=== PATIENT | female | born 1955 | race Caucasian/White ===

== ENCOUNTER 2017-05-21 10:25 | Emergency (ER) | payer OTHER ==
[~2017-05-21] VITALS: Ht 167.6 cm; Wt 61.2 kg
[2017-05-21 10:29] VITALS: BP 131/71
[2017-05-21] MEDS ORDERED: LIDOCAINE HCL/PF 1% 30 ML SDV ONE (10:39)
[2017-05-21] MEDS ORDERED: LIDOCAINE HCL/PF 1% 30 ML VIAL TP ONE (11:00)
== END 2017-05-21 12:41 | disposition home or self-care (01) ==
LOC: ER 10:36
DX: S99.821A Other specified injuries of right foot, initial encounter (principal); B35.1 Tinea unguium; W22.8XXA Striking against or struck by other objects, initial encounter; Y93.89 Activity, other specified; Y92.89 Other specified places as the place of occurrence of the external cause; Y99.8 Other external cause status
CPT/HCPCS: 11730; A4606; A6402; J3490; Z7610

== ENCOUNTER 2019-07-20 11:27 | Emergency (ER) | payer OTHER ==
[~2019-07-20] VITALS: Ht 175.3 cm; Wt 65.8 kg
--- NOTE | 2019-07-20 11:46 | NUR ---
CHEST PAIN SINCE YESTERDAY. CARDIO APPOINTMENT NOT UP TILL 07/31/19. REPORTS PAIN LEVEL 6/10. DENIES SOB, DIZZINESS, WEAKNESS, N/V. 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 NO ACUTE DISTRESS NOTED. ON MONITOR AND READY FOR EVAL.
--- NOTE | 2019-07-20 11:59 | NUR ---
IV LINE ESTABLISHED, BLOOD DRAWN AND SENT TO STAT LAB. PT KAREEN WELL.
--- NOTE | 2019-07-20 12:01 | NUR ---
BRITTNEY DONIS AT BEDSIDE FOR EKG
[2019-07-20 12:06] LABS: BASOPHILS # (AUTO) 0.1 /CMM (0.0-0.2); BASOPHILS % (AUTO) 1.8 % (0.0-2.0); EOSINOPHILS % (AUTO) 3.2 % (0.0-6.0); HEMATOCRIT 46 % (33-45); HEMOGLOBIN 15.2 g/dL (11.5-14.8); LYMPHOCYTES # (AUTO) 2.1 /CMM (0.8-4.8); MEAN CORPUSCULAR HGB CONC 33 g/dl (31.0-36.0); MEAN CORPUSCULAR VOLUME 91 fL (82-100); MONOCYTES # (AUTO) 0.4 /CMM (0.1-1.30); MONOCYTES % (AUTO) 6.6 % (2.0-12.0); NEUTROPHILS # (AUTO) 2.7 /CMM (1.8-8.9); NEUTROPHILS % (AUTO) 49.4 % (43.0-81.0); PLATELET COUNT (AUTO) 288 /CMM (150-450); RED BLOOD CELL COUNT(AUTO) 5.02 MIL/uL (4.0-5.2); WHITE BLOOD COUNT (AUTO) 5.4 K/uL (4.3-11.0)
--- NOTE | 2019-07-20 12:09 | NUR ---
DESIGN LEADER AT BEDSIDE
[2019-07-20 12:12] LABS: CALCIUM, SERUM 9.4 mg/dL (8.5-10.1); CARBON DIOXIDE 30 mmol/L (21-32); CHLORIDE 102 mmol/L (98-107); CREATININE 0.8 mg/dL (0.6-1.3); GLUCOSE 105 mg/dL (74-106); SODIUM SERUM 140 mmol/L (136-145); UREA NITROGEN, BLOOD 15 mg/dL (7-18)
--- NOTE | 2019-07-20 12:40 | NUR ---
Ericka bryant in [facility] - 07/20/19 at 1307 by DIANNA EMPTIED URINE LEG BAG AND WAITING FOR FRESH SAMPLE
--- NOTE | 2019-07-20 13:06 | NUR ---
IV removed. Catheter intact and site benign. Pressure and 4x4 applied to site. No bleeding noted.Patient discharged to home in stable condition. Written and verbal after care instructions given. Patient verbalizes understanding of instruction.
[2019-07-20 13:09] VITALS: BP 142/86
== END 2019-07-20 13:09 | disposition home or self-care (01) ==
LOC: ER 11:29
DX: R07.89 Other chest pain (principal); Z88.6 Allergy status to analgesic agent
CPT/HCPCS: 36415; 71045-TC; 80048-TC; 84484-TC; 85025-TC

== ENCOUNTER 2023-04-13 14:48 | Inpatient (IN) | payer MEDICARE, OTHER ==
[~2023-04-13] VITALS: Ht 167.6 cm; Wt 74.8 kg
[2023-04-13 15:58] LABS: BASOPHILS # (AUTO) 0.1 K/uL (0.0-0.2); BASOPHILS % (AUTO) 0.7 % (0.0-2.0); EOSINOPHILS # (AUTO) 0.3 K/uL (0.0-0.7); EOSINOPHILS % (AUTO) 2.8 % (0.0-6.0); HEMATOCRIT 45 % (33-45); HEMOGLOBIN 14.7 g/dL (11.5-14.8); LYMPHOCYTES # (AUTO) 1.3 K/uL (0.8-4.8); LYMPHOCYTES % (AUTO) 11.4 % (20.0-44.0); MEAN CORPUSCULAR HEMOGLOBIN 28 PG (26.0-33.0); MEAN CORPUSCULAR HGB CONC 33 g/dl (31.0-36.0); MEAN CORPUSCULAR VOLUME 86 fL (82-100); MONOCYTES # (AUTO) 0.9 K/uL (0.1-1.30); MONOCYTES % (AUTO) 7.5 % (2.0-12.0); NEUTROPHILS # (AUTO) 9.1 K/uL (1.8-8.9); NEUTROPHILS % (AUTO) 77.6 % (43.0-81.0); PLATELET COUNT (AUTO) 604 K/uL (150-450); RED BLOOD CELL COUNT(AUTO) 5.27 MIL/uL (4.0-5.2); RED CELL DISTRIBUTION WIDTH 13.2 % (11.5-15.0); WHITE BLOOD COUNT (AUTO) 11.7 K/uL (4.3-11.0)
[2023-04-13 16:27] LABS: PARTIAL THROMBOPLASTIN TIME 32.7 SEC (24.3-34.3); PROTHROMBIN TIME 10.6 SECS (9.2-11.1)
[2023-04-13 16:35] LABS: ALANINE AMINOTRANSFERASE 42 U/L (12-78); ALBUMIN 2.8 g/dL (3.4-5.0); ALKALINE PHOSPHATASE 202 U/L (46-116); ASPARTATE AMINOTRANSFERASE 41 U/L (15-37); BILIRUBIN,DIRECT 0.1 mg/dL (0.0-0.2); BILIRUBIN,TOTAL 0.5 mg/dL (0.2-1.0); CALCIUM, SERUM 9.5 mg/dL (8.5-10.1); CARBON DIOXIDE 29 mmol/L (21-32); CHLORIDE 95 mmol/L (98-107); CREATININE 0.7 mg/dL (0.6-1.3); GLUCOSE 120 mg/dL (74-106); SODIUM SERUM 135 mmol/L (136-145); TOTAL PROTEIN, SERUM 8.2 g/dL (6.4-8.2); UREA NITROGEN, BLOOD 11 mg/dL (7-18)
[2023-04-13 16:37] LABS: D-DIMER 7.29 mg/L(FEU (0.17-0.50)
[2023-04-13] MEDS ORDERED: FUROSEMIDE 20 MG/2 ML VIAL ONE (17:08)
[2023-04-13] MEDS ORDERED: FENTANYL PF 100MCG/2ML AMPUL ONE ×2 (17:09→18:37)
[2023-04-13] MEDS ORDERED: FUROSEMIDE 20 MG/2 ML VIAL IV ONE (17:30)
[2023-04-13] MEDS ORDERED: FENTANYL PF 100MCG/2ML AMPUL IV ONE ×2 (17:30→19:00)
[2023-04-13] MEDS ORDERED: IV LR 1000 ML 1,000 ML BAG IV ONE (17:30)
[2023-04-13] MEDS ORDERED: LIDOCAINE 1% INJ 50 ML MDV IJ ONE (17:46)
[2023-04-13] MEDS ORDERED: ONDANSETRON HCL/PF - ER 4 MG/2 ML VIAL IV ONE (19:00)
[2023-04-13] MEDS ORDERED: ONDANSETRON HCL/PF 4 MG/2 ML VIAL ONE (19:31)
[2023-04-14] MEDS ORDERED: Z GUARD REMEDY 4 OZ OINT TP PRN (06:30)
[2023-04-14] MEDS ORDERED: ONDANSETRON HCL/PF 4 MG/2 ML VIAL IVP PRN (06:30)
[2023-04-14] MEDS ORDERED: BENZONATATE 100 MG CAPSULE PO PRN (06:30)
[2023-04-14] MEDS ORDERED: IPRATROPIUM NEB FS 0.5 MG/2.5 ML AMPUL.NEB NEB PRN (06:30)
[2023-04-14] MEDS ORDERED: ALBUTEROL FS 2.5 MG/3 ML VIAL.NEB NEB PRN (06:30)
[2023-04-14] MEDS ORDERED: MORPHINE SULFATE INJ 2 MG/ML DISP.SYRIN IV PRN (06:30)
[2023-04-14] MEDS ORDERED: MELO-107 PO (08:07)
[2023-04-14] MEDS ORDERED: ALBU8.5H8 IH (08:07)
[2023-04-14] MEDS ORDERED: AZEL6DRO5 EACHEYE (08:07)
[2023-04-14] MEDS ORDERED: METH5TAB6 PO (08:07)
[2023-04-14] MEDS ORDERED: CHOL400T11 PO (08:07)
[2023-04-14] MEDS ORDERED: OMEP20CA15 PO (08:07)
[2023-04-14] MEDS: PANTOPRAZOLE 40 MG TABLET.DR PO SCH (08:09)
[2023-04-14] MEDS: ENOXAPARIN SODIUM 40 MG/0.4 ML DISP.SYRIN SQ SCH (08:44)
[2023-04-14] MEDS: ACETAMINOPHEN 325 MG TABLET PO PRN (15:42)
[2023-04-14 20:00] VITALS: BP 144/88; TEMP 97.5; O2SAT 99
[2023-04-15] VITALS: BP 106/72; TEMP 97.7; O2SAT 97
[2023-04-15 04:00] VITALS: BP 128/80; TEMP 97.7; O2SAT 97
[2023-04-15 07:48] LABS: BASOPHILS # (AUTO) 0.1 K/uL (0.0-0.2); BASOPHILS % (AUTO) 1.1 % (0.0-2.0); EOSINOPHILS # (AUTO) 0.5 K/uL (0.0-0.7); EOSINOPHILS % (AUTO) 5.7 % (0.0-6.0); HEMATOCRIT 39 % (33-45); HEMOGLOBIN 13.2 g/dL (11.5-14.8); LYMPHOCYTES % (AUTO) 11.3 % (20.0-44.0); MEAN CORPUSCULAR HEMOGLOBIN 29 PG (26.0-33.0); MEAN CORPUSCULAR HGB CONC 34 g/dl (31.0-36.0); MEAN CORPUSCULAR VOLUME 85 fL (82-100); MONOCYTES # (AUTO) 0.7 K/uL (0.1-1.30); MONOCYTES % (AUTO) 7.5 % (2.0-12.0); NEUTROPHILS # (AUTO) 6.9 K/uL (1.8-8.9); NEUTROPHILS % (AUTO) 74.4 % (43.0-81.0); PLATELET COUNT (AUTO) 514 K/uL (150-450); WHITE BLOOD COUNT (AUTO) 9.2 K/uL (4.3-11.0)
[2023-04-15] MEDS: PANTOPRAZOLE 40 MG TABLET.DR PO SCH (07:51)
[2023-04-15 08:00] VITALS: BP 116/72; TEMP 98.2; O2SAT 98
[2023-04-15 08:06] LABS: CALCIUM, SERUM 8.7 mg/dL (8.5-10.1); CREATININE 0.6 mg/dL (0.6-1.3); PHOSPHORUS 3.9 mg/dL (2.5-4.9); POTASSIUM 3.9 mmol/L (3.5-5.1)
[2023-04-15 08:24] LABS: THYROID STIMULATING HORMONE 15.665 uIU/mL (0.358-3.74)
[2023-04-15 08:32] LABS: ERYTHROCYTE SEDIMENTATION RATE 49 MM/HR (0-30)
[2023-04-15] MEDS: ENOXAPARIN SODIUM 40 MG/0.4 ML DISP.SYRIN SQ SCH (09:16)
[2023-04-15 12:00] VITALS: BP 127/73; TEMP 98.3; O2SAT 96
[2023-04-15] MEDS ORDERED: IOHEXOL-300 100 ML VIAL IV ONE (12:00)
[2023-04-15 16:00] VITALS: BP 128/83; TEMP 98.5; O2SAT 95
[2023-04-15] MEDS: KETOROLAC TROMETHAMINE 15 MG/ML VIAL IV PRN ×2 (16:13→23:44)
[2023-04-15 20:00] VITALS: BP 136/83; TEMP 98.3; O2SAT 97
[2023-04-16] VITALS: BP 154/66; TEMP 98.5; O2SAT 98
[2023-04-16 04:00] VITALS: BP 132/72; TEMP 98.2; O2SAT 97
[2023-04-16] MEDS: PANTOPRAZOLE 40 MG TABLET.DR PO SCH (07:30)
[2023-04-16 08:00] VITALS: BP 132/72; TEMP 98.2; O2SAT 97
[2023-04-16] MEDS: ENOXAPARIN SODIUM 40 MG/0.4 ML DISP.SYRIN SQ SCH (09:00)
[2023-04-16 12:00] VITALS: BP 129/86; TEMP 98.1; O2SAT 98
[2023-04-16 16:00] VITALS: BP 124/74; TEMP 98.1; O2SAT 94
[2023-04-16 20:00] VITALS: BP 130/82; TEMP 98.8; O2SAT 98
[2023-04-16] MEDS: ACETAMINOPHEN 325 MG TABLET PO PRN (21:31)
[2023-04-17] VITALS: BP 132/69; TEMP 97.4; O2SAT 97
[2023-04-17 04:00] VITALS: BP 148/92; TEMP 98.2; O2SAT 97
[2023-04-17] MEDS: PANTOPRAZOLE 40 MG TABLET.DR PO SCH (07:30)
[2023-04-17 08:00] VITALS: BP 118/62; TEMP 97.9; O2SAT 100
[2023-04-17 08:04] LABS: BASOPHILS # (AUTO) 0.1 K/uL (0.0-0.2); EOSINOPHILS # (AUTO) 0.5 K/uL (0.0-0.7); EOSINOPHILS % (AUTO) 7.6 % (0.0-6.0); HEMATOCRIT 36 % (33-45); HEMOGLOBIN 11.9 g/dL (11.5-14.8); LYMPHOCYTES # (AUTO) 0.8 K/uL (0.8-4.8); LYMPHOCYTES % (AUTO) 11.4 % (20.0-44.0); MEAN CORPUSCULAR HEMOGLOBIN 28 PG (26.0-33.0); MEAN CORPUSCULAR HGB CONC 34 g/dl (31.0-36.0); MEAN CORPUSCULAR VOLUME 84 fL (82-100); MONOCYTES # (AUTO) 0.6 K/uL (0.1-1.30); MONOCYTES % (AUTO) 8.4 % (2.0-12.0); NEUTROPHILS # (AUTO) 5.1 K/uL (1.8-8.9); NEUTROPHILS % (AUTO) 71.6 % (43.0-81.0); PLATELET COUNT (AUTO) 504 K/uL (150-450); RED BLOOD CELL COUNT(AUTO) 4.22 MIL/uL (4.0-5.2); RED CELL DISTRIBUTION WIDTH 13.3 % (11.5-15.0); WHITE BLOOD COUNT (AUTO) 7.2 K/uL (4.3-11.0)
[2023-04-17 08:11] LABS: *ANA ANTI-CENTROMERE B AB <0.2 AI (0.0-0.9); *ANA ANTI-DNA(DS) AB, QN 1 IU/mL (0-9); *ANA ANTI-JO-1 <0.2 AI (0.0-0.9); *ANA ANTICHROMATIN ANTIBODY <0.2 AI (0.0-0.9); *ANA RNP ANTIBODIES <0.2 AI (0.0-0.9); *ANA SJOGREN'S ANTI-SS-A <0.2 AI (0.0-0.9); *ANA SJOGREN'S ANTI-SS-B <0.2 AI (0.0-0.9); *ANAANTI-SCLERODERMA-70 AB <0.2 AI (0.0-0.9); *ANASMITH AB <0.2 AI (0.0-0.9)
[2023-04-17 08:17] LABS: INR 0.97 (0.91-1.10); PARTIAL THROMBOPLASTIN TIME 32.2 SEC (24.3-34.3); PROTHROMBIN TIME 10.3 SECS (9.2-11.1)
[2023-04-17 08:23] LABS: CALCIUM, SERUM 8.7 mg/dL (8.5-10.1); CREATININE 0.5 mg/dL (0.6-1.3); POTASSIUM 3.6 mmol/L (3.5-5.1)
[2023-04-17] MEDS: ENOXAPARIN SODIUM 40 MG/0.4 ML DISP.SYRIN SQ SCH (09:00)
[2023-04-17 12:00] VITALS: BP 129/82; TEMP 98.6; O2SAT 98
[2023-04-17] MEDS ORDERED: MIDAZOLAM HCL 2 MG/2ML VIAL IV PRN (14:30)
[2023-04-17] MEDS ORDERED: FLUMAZENIL 0.5 MG VIAL IV PRN (14:30)
[2023-04-17] MEDS ORDERED: FENTANYL PF 250MCG/5ML AMPUL IV PRN (14:30)
[2023-04-17] MEDS ORDERED: NALOXONE PREFILLED SYRINGE 2 MG/2 ML SYRINGE IV PRN (14:30)
[2023-04-17 16:00] VITALS: BP 133/86; TEMP 98.1; O2SAT 97
[2023-04-17 20:00] VITALS: BP 138/88; TEMP 98.9; O2SAT 98
[2023-04-17] MEDS ORDERED: KETOROLAC TROMETHAMINE INJ 30 MG/ML VIAL ONE (21:39)
[2023-04-17] MEDS: KETOROLAC TROMETHAMINE 15 MG/ML VIAL IV PRN (21:42)
[2023-04-18] VITALS: BP 123/82; TEMP 98; O2SAT 98
[2023-04-18 01:06] LABS: CANCER AG, 15-3 79.5 U/mL (0.0-25.0)
[2023-04-18 04:00] VITALS: BP 126/79; TEMP 98; O2SAT 98
[2023-04-18 08:00] VITALS: BP 132/84; TEMP 97; O2SAT 94
[2023-04-18 08:08] LABS: AFP, TUMOR MARKER 4.1 ng/mL (0.0-9.2)
[2023-04-18] MEDS: PANTOPRAZOLE 40 MG TABLET.DR PO SCH (08:15)
[2023-04-18] MEDS: ENOXAPARIN SODIUM 40 MG/0.4 ML DISP.SYRIN SQ SCH (08:16)
[2023-04-18 12:00] VITALS: BP 128/83; TEMP 97.7; O2SAT 98
[2023-04-18 16:00] VITALS: BP 119/79; TEMP 98.4; O2SAT 98
[2023-04-18 20:00] VITALS: BP 120/75; TEMP 98.4; O2SAT 94
[2023-04-18 20:11] LABS: BASOPHILS # (AUTO) 0.1 K/uL (0.0-0.2); EOSINOPHILS # (AUTO) 0.5 K/uL (0.0-0.7); EOSINOPHILS % (AUTO) 6.4 % (0.0-6.0); HEMATOCRIT 39 % (33-45); HEMOGLOBIN 12.8 g/dL (11.5-14.8); LYMPHOCYTES # (AUTO) 1.4 K/uL (0.8-4.8); LYMPHOCYTES % (AUTO) 16.3 % (20.0-44.0); MEAN CORPUSCULAR HEMOGLOBIN 28 PG (26.0-33.0); MEAN CORPUSCULAR HGB CONC 33 g/dl (31.0-36.0); MEAN CORPUSCULAR VOLUME 85 fL (82-100); MONOCYTES # (AUTO) 0.7 K/uL (0.1-1.30); MONOCYTES % (AUTO) 8.3 % (2.0-12.0); NEUTROPHILS # (AUTO) 5.8 K/uL (1.8-8.9); PLATELET COUNT (AUTO) 575 K/uL (150-450); RED BLOOD CELL COUNT(AUTO) 4.56 MIL/uL (4.0-5.2); RED CELL DISTRIBUTION WIDTH 13.1 % (11.5-15.0); WHITE BLOOD COUNT (AUTO) 8.5 K/uL (4.3-11.0)
[2023-04-19] VITALS: BP 120/83; TEMP 99.5; O2SAT 96
[2023-04-19 04:00] VITALS: BP 125/80; TEMP 98; O2SAT 97
[2023-04-19 07:11] LABS: BASOPHILS # (AUTO) 0.1 K/uL (0.0-0.2); BASOPHILS % (AUTO) 0.9 % (0.0-2.0); EOSINOPHILS # (AUTO) 0.5 K/uL (0.0-0.7); EOSINOPHILS % (AUTO) 6.5 % (0.0-6.0); HEMATOCRIT 39 % (33-45); HEMOGLOBIN 13.1 g/dL (11.5-14.8); LYMPHOCYTES # (AUTO) 1.5 K/uL (0.8-4.8); LYMPHOCYTES % (AUTO) 19.6 % (20.0-44.0); MEAN CORPUSCULAR HEMOGLOBIN 29 PG (26.0-33.0); MEAN CORPUSCULAR HGB CONC 34 g/dl (31.0-36.0); MEAN CORPUSCULAR VOLUME 85 fL (82-100); MONOCYTES # (AUTO) 0.7 K/uL (0.1-1.30); MONOCYTES % (AUTO) 8.6 % (2.0-12.0); NEUTROPHILS % (AUTO) 64.4 % (43.0-81.0); PLATELET COUNT (AUTO) 578 K/uL (150-450); RED BLOOD CELL COUNT(AUTO) 4.55 MIL/uL (4.0-5.2); RED CELL DISTRIBUTION WIDTH 13.1 % (11.5-15.0); WHITE BLOOD COUNT (AUTO) 7.8 K/uL (4.3-11.0)
[2023-04-19 08:00] VITALS: BP 113/73; TEMP 97.8; O2SAT 99
[2023-04-19] MEDS: PANTOPRAZOLE 40 MG TABLET.DR PO SCH (08:02)
[2023-04-19] MEDS: ENOXAPARIN SODIUM 40 MG/0.4 ML DISP.SYRIN SQ SCH (08:03)
[2023-04-19 12:00] VITALS: BP 114/73; TEMP 97.5; O2SAT 98
[2023-04-19] MEDS: ACETAMINOPHEN 325 MG TABLET PO PRN (13:13)
[2023-04-19 16:00] VITALS: BP 120/98; TEMP 97.8; O2SAT 94
== END 2023-04-19 18:44 | disposition home health service (06) | DRG 181 ==
LOC: ER 15:33 → TELE1 04-14 01:42
PROVIDERS: ADMIT Nurse Practitioner Acute Care; ATTEND Internal Medicine
PROC: 0W9B30Z Drainage of Left Pleural Cavity with Drainage Device, Percutaneous Approach (ICD-10-PCS; 2023-04-14)
PROC: 0BDG4ZX Extraction of Left Upper Lung Lobe, Percutaneous Endoscopic Approach, Diagnostic (ICD-10-PCS; principal; 2023-04-17)
DX: C34.12 Malignant neoplasm of upper lobe, left bronchus or lung (principal); C77.1 Secondary and unspecified malignant neoplasm of intrathoracic lymph nodes; C79.51 Secondary malignant neoplasm of bone; C78.2 Secondary malignant neoplasm of pleura; J91.0 Malignant pleural effusion; C78.7 Secondary malignant neoplasm of liver and intrahepatic bile duct; E87.1 Hypo-osmolality and hyponatremia; J98.11 Atelectasis; J98.19 Other pulmonary collapse; D72.829 Elevated white blood cell count, unspecified; D75.839 Thrombocytosis, unspecified; I10 Essential (primary) hypertension; K21.9 Gastro-esophageal reflux disease without esophagitis; Z87.891 Personal history of nicotine dependence; Z85.118 Personal history of other malignant neoplasm of bronchus and lung; R91.8 Other nonspecific abnormal finding of lung field; E05.90 Thyrotoxicosis, unspecified without thyrotoxic crisis or storm
CPT/HCPCS: 36415; 71045-TC; 71046; 71270-TC; 74178; 75989; 76942-TC; 80048-TC; 80061-TC; 80076-TC; 82105; 82378; 83735-TC; 84100-TC; 84439-TC; 84443-TC; 84484-TC; 85025-TC; 85378-TC; 85610-TC; 85652-TC; 85730-TC; 86225; 86235; 86300; 86301; 93307-TC; 97110-TC; 97116-TC; 97530-TC; A6403; G0378; J1650; J1885; J1940; J2270; J2405; J3010; J3490; J7120; Q9967

== ENCOUNTER 2023-04-20 12:11 | Emergency (ER) | payer MEDICARE, OTHER ==
[~2023-04-20] VITALS: Ht 167.6 cm; Wt 69.4 kg
[~2023-04-20 12:11] MED LIST: ALBU8.5H8 IH; AZEL6DRO5 EACHEYE; CHOL400T11 PO; MELO-107 PO; METH5TAB6 PO; OMEP20CA15 PO
[2023-04-20 12:32] VITALS: BP 112/74; TEMP 98; O2SAT 100
== END 2023-04-20 13:00 | disposition home or self-care (01) ==
LOC: ER 12:11
DX: Z48.02 Encounter for removal of sutures (principal); I10 Essential (primary) hypertension; Z85.3 Personal history of malignant neoplasm of breast; Z88.8 Allergy status to other drugs, medicaments and biological substances

== ENCOUNTER 2023-05-04 07:21 | Emergency (ER) | payer MEDICARE, OTHER ==
[~2023-05-04] VITALS: Ht 167.6 cm; Wt 68.5 kg
[2023-05-04 08:17] LABS: BASOPHILS # (AUTO) 0.1 K/uL (0.0-0.2); BASOPHILS % (AUTO) 1.1 % (0.0-2.0); EOSINOPHILS # (AUTO) 0.7 K/uL (0.0-0.7); EOSINOPHILS % (AUTO) 7.5 % (0.0-6.0); HEMATOCRIT 38 % (33-45); HEMOGLOBIN 12.9 g/dL (11.5-14.8); LYMPHOCYTES # (AUTO) 1.7 K/uL (0.8-4.8); LYMPHOCYTES % (AUTO) 18.6 % (20.0-44.0); MEAN CORPUSCULAR HEMOGLOBIN 29 PG (26.0-33.0); MEAN CORPUSCULAR HGB CONC 34 g/dl (31.0-36.0); MEAN CORPUSCULAR VOLUME 85 fL (82-100); MONOCYTES # (AUTO) 0.7 K/uL (0.1-1.30); MONOCYTES % (AUTO) 7.2 % (2.0-12.0); NEUTROPHILS % (AUTO) 65.6 % (43.0-81.0); PLATELET COUNT (AUTO) 433 K/uL (150-450); RED BLOOD CELL COUNT(AUTO) 4.49 MIL/uL (4.0-5.2); RED CELL DISTRIBUTION WIDTH 13.7 % (11.5-15.0); WHITE BLOOD COUNT (AUTO) 9.1 K/uL (4.3-11.0)
[2023-05-04 08:30] LABS: CALCIUM, SERUM 8.9 mg/dL (8.5-10.1); CARBON DIOXIDE 28 mmol/L (21-32); CHLORIDE 102 mmol/L (98-107); CREATININE 0.6 mg/dL (0.6-1.3); GLUCOSE 91 mg/dL (74-106); SODIUM SERUM 138 mmol/L (136-145); UREA NITROGEN, BLOOD 12 mg/dL (7-18)
[2023-05-04 08:43] LABS: ALANINE AMINOTRANSFERASE 21 U/L (12-78); ALKALINE PHOSPHATASE 127 U/L (46-116); ASPARTATE AMINOTRANSFERASE 22 U/L (15-37); BILIRUBIN,DIRECT 0.1 mg/dL (0.0-0.2); BILIRUBIN,TOTAL 0.4 mg/dL (0.2-1.0); NT-PRO BNP 39 pg/mL (0-125); TOTAL PROTEIN, SERUM 7.9 g/dL (6.4-8.2)
[2023-05-04] MEDS ORDERED: dexaMETHasone SOD PHOSPHATE 1 ML ONE (13:43)
[2023-05-04] MEDS: dexaMETHasone SOD PHOSPHATE 10 MG/ML VIAL IV ONE (13:48)
[2023-05-04] MEDS: LEVETIRACETAM (500MG) 1,500 MG in IV NS 0.9% 85 ML IV SCH (16:21)
[2023-05-04 17:13] VITALS: BP 116/68; TEMP 98; O2SAT 97
== END 2023-05-04 17:05 | disposition short-term general hospital (02) ==
LOC: ER 07:21
DX: C78.02 Secondary malignant neoplasm of left lung (principal); J91.0 Malignant pleural effusion; C79.31 Secondary malignant neoplasm of brain; I10 Essential (primary) hypertension; Z88.8 Allergy status to other drugs, medicaments and biological substances
CPT/HCPCS: 99291; 96365; 70450; 96375; 93005 ×2; 71045; 85025; 80048; 80076; 36415; 84484 ×2; 83880; J1100; J7030; J1953

== ENCOUNTER 2023-08-08 11:33 | Inpatient (IN) | payer MEDICARE, OTHER ==
[~2023-08-08] VITALS: Ht 170.2 cm; Wt 78.0 kg
[2023-08-08] VITALS (18 sets, daily range): BP systolic 93–135; BP diastolic 63–87; TEMP 98.2–99.3; O2SAT 93–100
[2023-08-08] MEDS ORDERED: PROPOFOL 100 ML ONE (11:48)
[2023-08-08] MEDS: PROPOFOL 100 ML IV PRN (12:00)
[2023-08-08 12:09] LABS: BASOPHILS % (AUTO) 0.2 % (0.0-2.0); HEMATOCRIT 36 % (33-45); HEMOGLOBIN 11.8 g/dL (11.5-14.8); LYMPHOCYTES # (AUTO) 1.5 K/uL (0.8-4.8); LYMPHOCYTES % (AUTO) 21.6 % (20.0-44.0); MEAN CORPUSCULAR HEMOGLOBIN 29 PG (26.0-33.0); MEAN CORPUSCULAR HGB CONC 33 g/dl (31.0-36.0); MEAN CORPUSCULAR VOLUME 89 fL (82-100); MONOCYTES # (AUTO) 0.5 K/uL (0.1-1.30); MONOCYTES % (AUTO) 7.3 % (2.0-12.0); NEUTROPHILS % (AUTO) 70.9 % (43.0-81.0); PLATELET COUNT (AUTO) 122 K/uL (150-450); RED BLOOD CELL COUNT(AUTO) 4.03 MIL/uL (4.0-5.2); RED CELL DISTRIBUTION WIDTH 19.3 % (11.5-15.0); WHITE BLOOD COUNT (AUTO) 7.1 K/uL (4.3-11.0)
[2023-08-08 12:14] LABS: CALCIUM, SERUM 8.8 mg/dL (8.5-10.1); CARBON DIOXIDE 27 mmol/L (21-32); CHLORIDE 100 mmol/L (98-107); GLUCOSE 101 mg/dL (74-106); POTASSIUM 4.7 mmol/L (3.5-5.1); SODIUM SERUM 135 mmol/L (136-145); UREA NITROGEN, BLOOD 55 mg/dL (7-18)
[2023-08-08] MEDS: ROCURONIUM BROMIDE 100 MG/10 ML VIAL IV ONE (12:19)
[2023-08-08] MEDS: ETOMIDATE 2 MG/ML VIAL IV ONE (12:19)
[2023-08-08 12:21] LABS: ALANINE AMINOTRANSFERASE 138 U/L (12-78); ALKALINE PHOSPHATASE 754 U/L (46-116); ASPARTATE AMINOTRANSFERASE 134 U/L (15-37); BILIRUBIN,DIRECT 0.9 mg/dL (0.0-0.2); BILIRUBIN,TOTAL 1.6 mg/dL (0.2-1.0); TOTAL PROTEIN, SERUM 7.1 g/dL (6.4-8.2)
[2023-08-08 12:22] LABS: LACTIC ACID 0.8 mmol/L (0.4-2.0)
[2023-08-08] MEDS: MIDAZOLAM HCL 200 MG in IV NS 0.9% 60 ML IV PRN (13:23)
[2023-08-08] MEDS ORDERED: MAGNESIUM HYDROXIDE 30 ML UDC PO PRN (13:30)
[2023-08-08] MEDS ORDERED: Z GUARD REMEDY 4 OZ OINT TP PRN (13:30)
[2023-08-08] MEDS ORDERED: ACETAMINOPHEN 325 MG TABLET PO PRN (13:30)
[2023-08-08] MEDS ORDERED: ALBUTEROL FS 2.5 MG/3 ML VIAL.NEB NEB PRN (13:30)
[2023-08-08] MEDS ORDERED: ZOLPIDEM TARTRATE 5 MG TABLET PO PRN (13:30)
[2023-08-08] MEDS ORDERED: IPRATROPIUM NEB FS 0.5 MG/2.5 ML AMPUL.NEB NEB PRN (13:30)
[2023-08-08] MEDS: FENTANYL CITRAT IV 2,500 MCG in IV NS 0.9% 200 ML IV PRN ×2 (13:43→19:48)
[2023-08-08] MEDS ORDERED: OSIM80TA PO (14:02)
[2023-08-08 14:05] LABS: INR 1.18 (0.91-1.10); PROTHROMBIN TIME 12.4 SECS (9.2-11.1)
[2023-08-08] MEDS: IPRATROPIUM NEB FS 0.5 MG/2.5 ML AMPUL.NEB NEB SCH (14:48)
[2023-08-08] MEDS: ALBUTEROL FS 2.5 MG/0.5 ML VIAL.NEB NEB SCH (14:48)
[2023-08-08] MEDS ORDERED: PIPERACILLIN /TAZOBACTAM 3.375 G in IV D5W 50 ML IV SCH (18:00)
[2023-08-08] MEDS: PIPERACILLIN /TAZOBACTAM 2.25 G in IV D5W 50 ML IV SCH (18:29)
[2023-08-08] MEDS: MIDAZOLAM HCL 100 MG in IV NS 0.9% 80 ML IV PRN (19:39)
[2023-08-08] MEDS: IV NS 0.9% 1,000 ML IV PRN (20:24)
[2023-08-08] MEDS: HEPARIN SODIUM, PORCINE 5000 UNITS/1 ML VIAL SQ SCH (21:41)
[2023-08-09] VITALS (34 sets, daily range): BP systolic 75–145; BP diastolic 38–78; TEMP 98.5–99.8; O2SAT 93–99
[2023-08-09 04:45] LABS: BASOPHILS % (AUTO) 0.1 % (0.0-2.0); HEMATOCRIT 31 % (33-45); HEMOGLOBIN 10.3 g/dL (11.5-14.8); LYMPHOCYTES # (AUTO) 0.9 K/uL (0.8-4.8); LYMPHOCYTES % (AUTO) 9.1 % (20.0-44.0); MEAN CORPUSCULAR HEMOGLOBIN 30 PG (26.0-33.0); MEAN CORPUSCULAR HGB CONC 34 g/dl (31.0-36.0); MEAN CORPUSCULAR VOLUME 89 fL (82-100); MONOCYTES # (AUTO) 0.6 K/uL (0.1-1.30); NEUTROPHILS % (AUTO) 84.8 % (43.0-81.0); PLATELET COUNT (AUTO) 101 K/uL (150-450); RED BLOOD CELL COUNT(AUTO) 3.48 MIL/uL (4.0-5.2); RED CELL DISTRIBUTION WIDTH 18.8 % (11.5-15.0); WHITE BLOOD COUNT (AUTO) 9.4 K/uL (4.3-11.0)
[2023-08-09 05:42] LABS: ALBUMIN 2.2 g/dL (3.4-5.0); BILIRUBIN,TOTAL 2.1 mg/dL (0.2-1.0); CALCIUM, SERUM 8.2 mg/dL (8.5-10.1); CREATININE 1.6 mg/dL (0.6-1.3); MAGNESIUM 2.2 mg/dL (1.8-2.4); POTASSIUM 3.7 mmol/L (3.5-5.1)
[2023-08-09 06:04] LABS: THYROID STIMULATING HORMONE 0.934 uIU/mL (0.358-3.74)
[2023-08-09] MEDS: PANTOPRAZOLE 40 MG VIAL IV SCH (09:01)
[2023-08-09 14:43] LABS: IRON, SERUM 24 ug/dl (50-175); TOTAL IRON BINDING CAPACITY 202 ug/dl (250-450)
[2023-08-09 15:18] LABS: FERRITIN 15593 ng/mL (8-388)
[2023-08-09 15:26] LABS: APPEARANCE,URINE CLOUDY (CLEAR); BILIRUBIN,URINE 2+ (NEGATIVE); BLOOD, URINE 3+ Ery/uL (NEGATIVE); COLOR,URINE DARK YELLOW (YELLOW); KETONES,URINE TRACE mg/dL (NEGATIVE); LEUKOCYTE ESTERASE ,URINE 2+ (NEGATIVE); NITRITE, URINE POSITIVE (NEGATIVE); PROTEIN,URINE 2+ mg/dl (NEGATIVE); UGLUCOSE NEGATIVE (NEGATIVE)
[2023-08-09 15:36] LABS: ADD URINE CULTURE YES; BACTERIA,URINE 2+ /HPF (None Seen); RBC,URINE 21-50 /HPF (0-2); SQUAMOUS EPITHELIAL CELL,UR Few /HPF (None Seen); WBC,URINE TOO NUMEROUS TO COUN /HPF (0-3)
[2023-08-09 16:26] LABS: CREATININE, URINE 127.4 MG/DL (30.0-125.0); URINE TOTAL PROTEIN 176.2 mg/dL (0-11.9)
[2023-08-09] MEDS: LORAZEPAM INJ 2 MG/ML VIAL IV PRN (18:29)
[2023-08-09] MEDS: ONDANSETRON HCL/PF 4 MG/2 ML VIAL IVP PRN (18:29)
[2023-08-09] MEDS ORDERED: MORPHINE SULFATE PF DRIP 100 MG in IV D5W 96 ML IV PRN (18:30)
[2023-08-09] MEDS: MORPHINE SULFATE INJ 4 MG/ML DISP.SYRIN IV PRN (18:30)
[2023-08-09] MEDS: MORPHINE SULFATE PF DRIP 100 MG in IV D5W 96 ML IV PRN (19:57)
[2023-08-10] VITALS (38 sets, daily range): BP systolic 38–127; BP diastolic 25–102; TEMP 97.5–98.8; O2SAT 16–99
== END 2023-08-10 15:42 | DRG 208 ==
LOC: ER 11:35 → ICU 14:12
PROVIDERS: ADMIT Nurse Practitioner Acute Care
PROC: 5A1945Z Respiratory Ventilation, 24-96 Consecutive Hours (ICD-10-PCS; principal; 2023-08-08)
PROC: 0BH17EZ Insertion of Endotracheal Airway into Trachea, Via Natural or Artificial Opening (ICD-10-PCS; 2023-08-08)
DX: J96.01 Acute respiratory failure with hypoxia (principal); J15.69 Pneumonia due to other Gram-negative bacteria; N17.0 Acute kidney failure with tubular necrosis; C79.31 Secondary malignant neoplasm of brain; J91.0 Malignant pleural effusion; E87.1 Hypo-osmolality and hyponatremia; I82.433 Acute embolism and thrombosis of popliteal vein, bilateral; C34.92 Malignant neoplasm of unspecified part of left bronchus or lung; C77.1 Secondary and unspecified malignant neoplasm of intrathoracic lymph nodes; Z51.5 Encounter for palliative care; D64.9 Anemia, unspecified; D69.6 Thrombocytopenia, unspecified; E03.9 Hypothyroidism, unspecified; E86.9 Volume depletion, unspecified; N18.9 Chronic kidney disease, unspecified; Z88.6 Allergy status to analgesic agent; I12.9 Hypertensive chronic kidney disease with stage 1 through stage 4 chronic kidney disease, or unspecified chronic kidney disease; E05.90 Thyrotoxicosis, unspecified without thyrotoxic crisis or storm; R74.01 Elevation of levels of liver transaminase levels; Z79.60 Long term (current) use of unspecified immunomodulators and immunosuppressants; Z87.891 Personal history of nicotine dependence; Z92.3 Personal history of irradiation; M89.8X9 Other specified disorders of bone, unspecified site
CPT/HCPCS: 31720; 36415; 36600; 71045-TC; 76700-TC; 76770-TC; 80048-TC; 80053-TC; 80061-TC; 80076-TC; 81001; 82378; 82570-TC; 82728-TC; 82803-TC; 83540-TC; 83605-TC; 83735-TC; 84100-TC; 84300-TC; 84443-TC; 84484-TC; 85025-TC; 85730-TC; 87040-TC; 87081-TC; 87086-TC; 93970-TC; 94002-TC; 94003-TC; 94640-TC; 94799-TC; A4223; C9113; G0378; J1644; J2060; J2250; J2270; J2274; J2405; J2543; J3010; J3490; J7030; J7050; J7060